=== PATIENT | female | born 1970 ===

== ENCOUNTER 2016-12-15 01:56 | Emergency (ER) | payer SELFPAY ==
[~2016-12-15] VITALS: Ht 170.2 cm; Wt 106.5 kg
[2016-12-15 02:02] VITALS: Ht 170.2 cm; Wt 106.5 kg
== END 2016-12-15 05:30 | disposition left against medical advice (07) ==
LOC: FTE 01:56
DX: Z53.21 Procedure and treatment not carried out due to patient leaving prior to being seen by health care provider (principal)